=== PATIENT | male | born 1955 | race Caucasian/White ===

== ENCOUNTER 2021-01-08 11:25 | Observation (INO) | payer BC, SELFPAY ==
[2020-11-30 15:11] VITALS: BMI 42.5
--- NOTE | 2021-01-07 23:40 | HP.PCM_ITS ---
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 Over the last several months it has increased in size and intermittently bleeds. He has obstructive sleep apnea and he wears a nasal mask at night. Sometimes it will irritate his rhinophyma that can lead to bleeding as well. Patient has diabetes mellitus, and his last HgbA1c was 7.4 on 10/25/20. He presents today for further evaluation and treatment. PAST MEDICAL HISTORY Diabetes Hearing problem High blood pressure History of broken leg Neuropathy Obstructive sleep apnea Rhinophyma ALLERGIES No Known Allergies MEDICATIONS bupropion HCl hydrochlorothiazide insulin glargine 100 unit/mL insulin lispro 100 unit/mL lisinopril metformin metronidazole 1 % topical cream simvastatin FAMILY HISTORY Father - Cancer Mother - Diabetes, Hypertension, CVA (cerebral vascular accident) Grandmother - Melanoma Family history of skin cancer SOCIAL HISTORY Smoking Status: Former smoker alcohol intake: current substance use type: does not use REVIEW OF SYSTEMS General - Denies fever, fatigue, and weight loss. Eyes - Denies cataracts and glaucoma. ENT - Denies nasal congestion and sore throat. Endocrine - Denies excessive thirst and urination. Skin - Denies skin cancer. Has large area of rhinophyma. Has family history of skin cancer. Musculoskeletal - Denies joint pain, joint stiffness, weakness of muscles and joints, back pain, and arthritis. Neuro - Denies headaches. Cardiovascular - Denies chest pain, fatigue, and shortness of breath with exertion. Psych - Denies anxiety and depression. Respiratory - Denies chronic cough and shortness of breath. Has sleep apnea. He is a former smoker. Gastrointestinal - Denies nausea, vomiting, diarrhea, and constipation. Hematologic - Denies abnormal bruising and bleeding. Genitourinary - Denies hematuria and urinary frequency. PHYSICAL EXAMINATION General - Alert and oriented. HEENT - PERRL. EOMI. Throat is clear. On his nasal dorsum is a large area of rhinophyma. Measures 6 x 5 cm. It extends to the nasal tip and laterally onto the lateral nasal sidewall. The columella and inferior nostrils are spared. No evidence of infection. No other suspicious lesions noted. Neck - Supple and non-tender. No cervical adenopathy. No suspicious lesions noted. Lungs- Clear to auscultation. Heart - Regular rate and rhythm. Abdomen - Soft and non distended. Extremities - FROM. No axillary adenopathy. Radial pulses are palpable. No suspicious lesions noted. Neuro - CN II-XII grossly intact. Psych - Normal mood and affect. ASSESSMENT 1. Nasal rhinophyma. 2. Family history of skin cancer. 3. Diabetes mellitus. 4. Former smoker. PLAN Patient has longstanding rhinophyma. It has started to bleed intermittently. There is risk of infection, ulceration, and bleeding with untreated rhinophyma. Also the enlarged glands can obscure a potential skin cancer on the nose. Recommend excision and surgical planing of skin of nose for his rhinophyma. To help with hemostasis, CO2 laser can be used as well. The goal is to remove as much of the enlarged glands to allow adequate re- epithelialization. If the excision and surgical planing goes too deep, then healing will be with scar tissue. Tissue that is removed will be sent to Pathology for analysis to rule out carcinoma and to Microbiology for culture. A positive culture will necessitate antibiotic therapy. The wound will be left open and local wound care started to aid in re- epithelialization. Will start with Xeroform gauze and antibiotic ointment daily. Once re-epithelialization starts, can change to Aquaphor daily. If suboptimal healing occurs with a scar contracture that leads to a deformity, then excision of scar tissue can be done with skin grafting. Surgery will be done under general anesthesia with a surgical observation overnight stay in the hospital. Patient's HgbA1c was 7.4 on 10/25/20. For elective surgeries, the HgbA1c needs to be less than 8. Patient was informed of the risks and complications of the procedure including alternatives to surgery. These were discussed with the patient personally. Patient voices understanding and wishes to proceed. Some of the risks and complications were included in a form from the [place] [employer]. We discussed the current risks associated with COVID-19. While it is understood that there is a community spread of COVID-19, the risk of susy COVID-19 while at [facility] ([facility]) is very low; however, the risk cannot be completely mitigated because of the community spread of the disease. We discu ssed in detail the risk of exposure to and/or potential harm posed by the COVID- 19 virus with having a surgery/procedure at this time versus the risk of delaying the surgery/procedure. It is not possible to know either the risk of delaying the surgery or procedure or chance of getting an infection with perfect accuracy, but a joint decision was made to proceed at this time with the scheduled surgery/procedure as indicated on the consent form. Patient was notified that we will need to comply with any screening or testing WC wishes to perform or that surgery may be delayed for any positive results. Procedure Criteria Procedure Type:?Elective COVID Risk Discussion: The surgeon/proceduralist and patient have discussed in detail the risk of exposure to and/or potential harm posed by the COVID-19 virus with having a surgery/procedure at this time versus the risk of delaying the surgery/procedure.? It is not possible to know either the risk of delaying the surgery or procedure or chance of getting an infection with perfect accuracy, but a joint decision was made between the patient and the surgeon/proceduralist to proceed at this time with the scheduled surgery/procedure as indicated on the consent form.
[2021-01-08] VITALS (12 sets, daily range): BP systolic 133–152; BP diastolic 69–83; PULSE 60–66; RESP 16–18; TEMP 36.1–36.8; O2SAT 95–100; BMI 41.2
[2021-01-08] MEDS: Lactated Ringers 1,000 ML 100 ML IV ×2 (07:27→11:26)
[2021-01-08] MEDS: Mupirocin Ointment 22gm Tube 1 APPLIC (08:21)
--- NOTE | 2021-01-08 08:30 | NASAL_PTH ---
PATIENT: JAVED MARI LOC: MS3 U#:[id number] AGE/SX: 65/M ROOM: NE314 RE01/08/[address]: Dr. Constantino Parsons DO : 1955 BED: 1 DIS: 01/09/2021 SPEC #: [id number] RECD: 01/08/21 10:18 STATUS: EILEEN ROSEANNE #: [id number] BASSAM: 01/08/21 08:[address]: Luis Newton DEPT: SURGICAL PATHOLOGY RECD BY: Michael Holliday ENTERED: 01/08/21 11:09 SP TYPE: NASAL SPEC OTHR DR: Dr. 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 Diffuse sebaceous hyperplasia. Multiple follicular cysts. Acute and chronic inflammation and foreign body giant cell reaction. GRETCHEN:noreen 01/10/2021 COMMENT This case was reviewed and diagnosis discussed with Dr. Joe on 03/19/21. Case has been reviewed in consultation with Dr. Dawson who concurs with the above diagnosis. IDC:AM MICROSCOPIC DESCRIPTION Slides are reviewed. GROSS DESCRIPTION Received in fixative is one container labeled with the patient's name and designated tissue rhinophyma. The specimen consists of multiple pieces of parker-white skin that in aggregate measure 6 x 6 x 1.5 cm. No well-defined mass lesion is identified. Fruit Farmworker sections are submitted in three cassettes. / GRETCHEN:noreen 01/08/21 The rest of the specimen is submitted in eight more cassettes, 4-11. / GRETCHEN:noreen 01/09/21 TC:0 CPT: 21227
[2021-01-08 08:51] LABS: Bedside Glucose 158 mg/dL (70-110)
[2021-01-08] MEDS: Lidocaine 1% /Epi 1:100 (20ml) 20 ML Vial (09:05)
--- NOTE | 2021-01-08 10:13 | PCM.OPRPT ---
Problems Associated Problem List Diagnoses (1) Rhinophyma: (2) Family history of skin cancer: (3) Diabetes: (4) Former smoker: Report of Operation Date of Procedure: 01/08/21 Pre-Operative Diagnosis: 1. Nasal rhinophyma. 2. Family history of skin cancer. 3. Diabetes mellitus. 4. Former smoker. Post-Operative Diagnosis: Same. Surgery/Procedure Performed:: Excision and surgical planing skin of nose for rhinophyma and with CO2 laser ablation. 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 Over the last several months it has increased in size and intermittently bleeds. He has obstructive sleep apnea and he wears a nasal mask at night. Sometimes it will irritate his rhinophyma that can lead to bleeding as well. Patient has diabetes mellitus, and his last HgbA1c was 7.4 on 10/25/20. Patient was informed of the risks and complications of the procedure including alternatives to surgery. These were discussed with the patient personally. Patient voices understanding and wishes to proceed. Some of the risks and complications were included in a form from the [place] [employer]. I used Coherent Ultrapulse CO2 laser Model #5000C. Power - 60 Campos. Energy - 300 MJoules. Rate - Hertz (pulses/second). CGP - Pattern 3, Size 5. Density - 5. One second interval repeat delay. Size of nasal defect - 9 x 5 cm. Surgeon: Luis Newton emu farm worker: None Type of Anesthesia: General Specimen's removed: Nasal rhinophyma tissue to Pathology and Microbiology. Drains: None. Estimated Blood Loss (mL): 50. Description of Procedure: Patient was taken to OR in supine position and was placed under general anesthesia. The face was prepped and draped in the usual fashion. SCD's were placed for DVT prophylaxis. Perioperative antibiotics were given intravenously. Using xylocaine with epinephrine, the nasal rhinophyma was infiltrated. Because of the anticipation of a lot of bleeding, I waited 10 minutes to give the Epinephrine a chance to work. Under loupe magnification, I proceeded with excision and surgical planing of the skin of nose for rhinophyma. I needed several tangential passes because of the thickness and size of the enlarged glands. There were a lot of chronically infected sebaceous cysts with some isolated pus seen. The endpoint was not seeing any more gland and seeing subcutaneous tissue. It involved the entire nose except for the alar rims and the columella. By waiting extra minutes at the beginning of the procedure, it gave us better vasoconstriction. The bleeding was manageable. The estimated blood loss for the surgery was 50 ml. I anticipated 250-350 ml. There were several bleeding points that were actively bleeding and electrocautery was used for hemostasis. This was done in a tangential fashion to minimize vertical cautery damage that may expose some nasal cartilage. Tissue that was excised and surgically planed was sent to Pathology for analysis to rule out carcinoma and to Microbiology for culture. A positive culture will necessitate antibiotic therapy. At this point I wanted to proceed with the CO2 laser for ablation of some loose subcutaneous tissue to help smooth out the wound as the surgical planing can lead to some unevenness of the subcutaneous tissue. It is also used for ablation for any residual oozing in the nasal wound. I used the [employer] Ultrapulse CO2 laser. The settings I used were 60 Campos for power, 300 MJoules for energy, 200 Hertz for rate, Pattern 3 and Size 5 for CGP, Density of 5. I completed one full pass. For any additional areas of bleeding or unevenness, a second pass was done to these scattered areas. Good hemostasis was seen after the use of the laser. Much smoother contour of the subcutaneous tissue was noted. No exposed cartilage was seen. The size of the nasal defect was 9 x 5 cm. I then placed Xeroform gauze on the nasal wound followed by Bactroban ointment, and a 4x4 gauze dressing. Patient tolerated the procedure well and was sent to PACU in satisfactory condition. Patient will be sent upstairs for continued postop care. Anticipate discharge tomorrow if no bleeding is seen in the nasal wound. Will instruct the family on the care of the nasal wound. Grafts/Implants Used: None. Complications None. Addendum Addendum: Surgery Charges CPT - 31472 ICD-10 - L71.1, Z80.8, E11.9, Z87.891
[2021-01-08 10:36] LABS: Bedside Glucose 144 mg/dL (70-110)
[2021-01-08] MEDS: oxyCODONE 5 MG Tablet 10 MG PO (12:43)
--- NOTE | 2021-01-08 12:57 | PCM.PN.HOSP ---
Subjective Subjective Mr. Browne is a 65-year-old male with a past medical history of hypertension, DM-2, hyperlipidemia, diabetic neuropathy, and obstructive sleep apnea with remote tobacco abuse who was admitted to [facility] on 01/08/2021 by plastic surgery (Dr. Newton) for an excisional and surgery planing of nasal rhinophyma with CO2 laser ablation. His preoperative A1c on 10/25/2020 was 7.4. Evidently has had rhinophyma for years but unfortunately the size has increased and he has had intermittent bleeding. He wears a nasal mask for sleep apnea at night. He is now immediately postoperative admitted to the medical surgical floor. We have been consulted for medical management of his chronic medical issues. Patient reports that he has bought a fullface mask for his CPAP so he can wear his machine at night with his surgery. He is currently denying any pain. A diet has been started and he is tolerating this well. He denies any nausea. Objective Data Objective Data Vital Signs: Vital Signs Temp Pulse Resp BP Pulse Ox 97.6 F L 60 16 145/82 H 96 01/08/21 12:03 01/08/21 12:03 01/08/21 12:03 01/08/21 12:03 01/08/21 12:03 Oxygen Flow Rate (L/min) 6 Oxygen Delivery Method Room Air Weight: 134.2 kg Body Mass Index (BMI) 41.2 Intake & Output: Intake and Output for Last 24 Hours 01/06/21 01/07/21 01/08/21 23:59 23:59 23:59 Intake Total 1079.33 / 1079.33 Balance 1079.33 / 1079.33 Lab / Micro Data Labs: Laboratory Results - last 24 hr 01/08/21 07:35: POC Glucose 158 H 01/08/21 10:32: POC Glucose 144 H Physical Exam Const alert and oriented x3 Constitutional Narrative: Very pleasant, morbidly obese, upper middle-aged white male sitting up in bed watching television, appears comfortable and nontoxic Exam Limitations: no limitations HEENT head/scalp atraumatic, moist oral mucous membranes and oropharynx normal HEENT Narrative: Mallampati 3-4, no thrush, dentition fair Head and Scalp: normocephalic Mouth: oral and palatal mucosa normal Eyes PERRL and EOMs intact bilaterally Neck no lymphadenopathy, supple and no JVD Neck Narrative: Trachea midline, no thyroid enlargement noted Resp normal respiratory effort, no retractions, no use of accessory muscles and clear to auscultation bilaterally Auscultation: Negative for crackles, rales, rhonchi or wheezes Cardio regular rate, regular rhythm, S1 normal heart sound, S2 normal heart sound, no murmurs, no rub, no gallops, no clicks and no JVD GI normal to inspection, nondistended, normoactive bowel sounds, soft to palpation, non-tender and non-distended Extremity no clubbing, cyanosis or edema Extremity Narrative: SCDs in place Peripheral Pulses: Yes pulses 2+ throughout Skin no rashes or lesions noted, skin turgor normal, no jaundice, no petechiae and no mottling Skin Narrative: Bandage over postoperative nose with some blood staining but not saturated Neuro oriented x3, CN's II-XII intact bilaterally, moves all extremities and no focal motor deficits Sensorium / Orientation: awake and alert Speech: speech normal Psych affect normal Psych Narrative: Very pleasant Assessment & Plan Assessment/Plan (1) Rhinophyma: PLAN: Rhinophyma status post excision and surgical planing skin of nose for rhinophyma and with CO2 laser ablation -Management per Dr. Newton from plastic surgery -Home aspirin is on hold -Pain management per primary -Bowel regimen ordered -Continue IV fluids at 60 cc/h until p.o. intake has improved Hypertension -Continue amlodipine 5 mg daily -Continue hydrochlorothiazide 25 mg daily -Continue losartan 100 mg daily Hyperlipidemia -Continue statin DM-2 uncontrolled -Preoperative hemoglobin A1c in October 2020 was 7.4 -Continue home Lantus 80 units twice daily -Continue home metformin -Add sliding scale 3 times daily and before meals -Accu-Cheks History of tobacco abuse -No diagnosis of COPD -As needed albuterol added [place] -Patient typically wears nasal pillows but had the foresight enough to get a full facemask to not place pressure on his nose with his recent surgery -Please bring CPAP machine and full facemask Morbid obesity -Recommend weight loss -BMI 41.3 -Complicates treatment, prognosis, and outcomes Vitamin D deficiency -Continue home cholecalciferol Depression -Continue Wellbutrin DVT prophylaxis -Enoxaparin 40 mg SQ twice daily -SCDs CODE STATUS -Full code Charges/Coding Visit Charges Inpatient E&M: 96161 Subs Hosp L2
[2021-01-08] MEDS: Insulin Lispro 100 UNIT/ML INSULN.PEN SC (16:13)
[2021-01-08] MEDS: metFORMIN HCl 1,000 MG Tablet 1000 MG PO (16:15)
[2021-01-08 16:16] LABS: Bedside Glucose 264 mg/dL (70-110)
[2021-01-08] MEDS: Docusate Sodium 100 MG Capsule PO (22:05)
[2021-01-08] MEDS: Lactated Ringers 1,000 ML 60 ML IV (22:05)
[2021-01-08] MEDS: Enoxaparin 40 MG/0.4 ML Syringe SC (22:05)
[2021-01-08 22:16] LABS: Bedside Glucose 262 mg/dL (70-110)
--- NOTE | 2021-01-08 22:45 | PCS.PANDOC ---
PANDEMIC DOCUMENTATION INITIATED: Date: 12/25/2020 Time: 190
[2021-01-09 04:39] VITALS: BP 152/84; PULSE 67; RESP 18; TEMP 36.9; O2SAT 98
[2021-01-09 05:29] LABS: Hematocrit 41.4 % (40-54); Hemoglobin 13.7 g/dL (13.0-16.5); Mean Corp Hgb Conc 33.1 g/dL (32-36); Mean Corpuscular Hgb 28.9 pg (27.0-32.0); Mean Corpuscular Volume 87.3 fL (80-94); Mean Platelet Vol. 11.6 fl (6.2-12.0); Platelet Count 206 K/mm3 (150-450); RBC Distribution Width CV 12.3 % (11.6-14.6); RBC Distribution Width SD 39.8 fl (35.1-43.9); Red Blood Count 4.74 M/mm3 (4.6-6.2); White Blood Count 9.8 K/mm3 (4.4-11.0)
[2021-01-09 06:08] LABS: Anion Gap 5 (5-15); BUN 16 mg/dL (7-18); BUN/Creat Ratio 17.8 RATIO (10-20); Calcium,Total 8.3 mg/dL (8.5-10.1); Chloride 106 mmol/L (98-107); EST Glomerular Filtration Rate 91 mL/min (>60); Est Glom Filt Rate - Afr Amer 110 mL/min (>60); Estimated Creatinine Clearance 88.31 ml/min; Glucose 164 mg/dL (74-106); Potassium 3.6 mmol/L (3.5-5.1); Prealbumin 24.3 mg/dL (20.0-40.0); Sodium Level 137 mmol/L (136-145)
[2021-01-09 06:35] LABS: Bedside Glucose 149 mg/dL (70-110)
[2021-01-09 07:42] VITALS: PULSE 80
[2021-01-09] MEDS: Losartan Potassium 100 MG Tablet PO (07:53)
[2021-01-09] MEDS: hydroCHLOROthiazide 25 MG Tablet PO (07:53)
[2021-01-09] MEDS: amLODIPine 5 MG Tablet PO (07:53)
[2021-01-09] MEDS: buPROPion (XL) 300 MG TABLET.XL PO (07:53)
[2021-01-09] MEDS: metFORMIN HCl 1,000 MG Tablet 1000 MG PO (07:53)
[2021-01-09] MEDS: Docusate Sodium 100 MG Capsule PO (07:54)
--- NOTE | 2021-01-09 09:53 | PCM.PN.HOSP ---
Subjective Subjective Feels well tolerating full face mask. No change to nasal dressing since surgery. Objective Data Objective Data Vital Signs: Vital Signs Temp Pulse Resp BP Pulse Ox 36.9 C 80 18 152/84 H 98 01/09/21 04:39 01/09/21 07:42 01/09/21 04:39 01/09/21 04:39 01/09/21 04:39 Oxygen Flow Rate (L/min) 6 Oxygen Delivery Method Room Air Weight: 134.2 kg Body Mass Index (BMI) 41.2 Intake & Output: Intake and Output for Last 24 Hours 01/07/21 01/08/21 01/09/21 23:59 23:59 23:59 Intake Total 2442.33 / 2442.33 304 / 304 Balance 2442.33 / 2442.33 304 / 304 Lab / Micro Data Result Diagrams: 01/09/21 05:12 01/09/21 05:12 Labs: Laboratory Results - last 24 hr 01/08/21 10:32: POC Glucose 144 H 01/08/21 16:08: POC Glucose 264 H 01/08/21 22:03: POC Glucose 262 H 01/09/21 04:39: POC Glucose 149 H 01/09/21 05:12: WBC 9.8, RBC 4.74, Hgb 13.7, Hct 41.4, MCV 87.3, MCH 28.9, MCHC 33.1, RDW Std Deviation 39.8, RDW Coeff of Eliezer 12.3, Plt Count 206, MPV 11.6 01/09/21 05:12: Sodium 137, Potassium 3.6, Chloride 106, Carbon Dioxide 26.0, Anion Gap 5, BUN 16, Creatinine 0.90, Estim Creat Clear Calc 88.31, Est GFR (MDRD) Af Amer 110, Est GFR (MDRD) Non-Af 91, BUN/Creatinine Ratio 17.8, Glucose 164 H, Calcium 8.3 L, Prealbumin 24.3 Physical Exam Narrative on CPAP. no respiratory distress. HEENT HEENT Narrative: nasal dressing with some sanguinous discharge. Resp normal respiratory effort, no retractions, no use of accessory muscles and clear to auscultation bilaterally Cardio regular rate, regular rhythm, S1 normal heart sound and S2 normal heart sound GI normal to inspection, nondistended, normoactive bowel sounds, soft to palpation, non-tender and non-distended Assessment & Plan Assessment/Plan (1) Rhinophyma: PLAN: 1. rhinophyma s/p excision and surgical planing skin or nose with laser ablation on 01/08 mgmt per PRS 2. Hypertension -Continue amlodipine 5 mg daily -Continue hydrochlorothiazide 25 mg daily -Continue losartan 100 mg daily 3. Hyperlipidemia -Continue statin 4. DM2 fair control -Preoperative hemoglobin A1c in October 2020 was 7.4 -Continue home Lantus 80 units twice daily -Continue home metformin -Add sliding scale 3 times daily and before meals -Accu-Cheks 5. History of tobacco abuse -No diagnosis of COPD -As needed albuterol added 6. [place] -Patient typically wears nasal pillows but had the foresight enough to get a full facemask to not place pressure on his nose with his recent surgery -Please bring CPAP machine and full facemask 7. Morbid obesity -Recommend weight loss -BMI 41.3 -Complicates treatment, prognosis, and outcomes 8. Vitamin D deficiency -Continue home cholecalciferol 9. Depression -Continue Wellbutrin 10. DVT prophylaxis -Enoxaparin 40 mg SQ twice daily -SCDs Medically stable for discharge. Charges/Coding Visit Charges Inpatient E&M: 39085 Subs Hosp L2
[2021-01-09] MEDS: Enoxaparin 40 MG/0.4 ML Syringe SC (10:08)
[2021-01-09 10:12] VITALS: BP 160/78; PULSE 75; RESP 18; TEMP 36.9; O2SAT 98
[2021-01-09] MEDS: Insulin Lispro 100 UNIT/ML INSULN.PEN SC (11:51)
[2021-01-09 12:01] LABS: Bedside Glucose 204 mg/dL (70-110)
[2021-01-09 12:01] LABS: Bedside Glucose 257 mg/dL (70-110)
--- NOTE | 2021-01-09 12:37 | PCM.PN.SRG ---
Subjective Subjective Postop #1 Patient sitting up in chair. He states his pain is well controlled. Objective Data Objective Data Vital Signs: Vital Signs Temp Pulse Resp BP Pulse Ox 98.5 F 75 18 160/78 H 98 01/09/21 10:12 01/09/21 10:12 01/09/21 10:12 01/09/21 10:12 01/09/21 10:12 Oxygen Flow Rate (L/min) 6 Oxygen Delivery Method Room Air Weight: 295 lb 13.765 oz Body Mass Index (BMI) 41.2 Intake & Output: Intake and Output for Last 24 Hours 01/07/21 01/08/21 01/09/21 23:59 23:59 23:59 Intake Total 2442.33 / 2442.33 304 / 304 Balance 2442.33 / 2442.33 304 / 304 Lab / Micro Data Result Diagrams: 01/09/21 05:12 01/09/21 05:12 Labs: Laboratory Results - last 24 hr 01/08/21 16:08: POC Glucose 264 H 01/08/21 22:03: POC Glucose 262 H 01/09/21 04:39: POC Glucose 149 H 01/09/21 05:12: WBC 9.8, RBC 4.74, Hgb 13.7, Hct 41.4, MCV 87.3, MCH 28.9, MCHC 33.1, RDW Std Deviation 39.8, RDW Coeff of Eliezer 12.3, Plt Count 206, MPV 11.6 01/09/21 05:12: Sodium 137, Potassium 3.6, Chloride 106, Carbon Dioxide 26.0, Anion Gap 5, BUN 16, Creatinine 0.90, Estim Creat Clear Calc 88.31, Est GFR (MDRD) Af Amer 110, Est GFR (MDRD) Non-Af 91, BUN/Creatinine Ratio 17.8, Glucose 164 H, Calcium 8.3 L, Prealbumin 24.3 01/09/21 10:07: POC Glucose 257 H 01/09/21 11:48: POC Glucose 204 H Micro: Microbiology 01/08/21 10:00 Tissue - Nose Wound Culture - Preliminary Streptococcus group B Physical Exam Const oriented x3 and no apparent distress Eyes PERRL Resp normal respiratory effort Cardio regular rate GI soft to palpation and non-tender Extremity normal to inspection and full ROM Skin Wound Narrative: Operative dressing removed. Xeroform in place over nose. No active bleeding at this time. Minimal swelling present. Neuro oriented x3 and CN's II-XII intact bilaterally Psych mental status grossly normal and thought process normal Assessment & Plan Assessment/Plan (1) Rhinophyma: (2) Other acute postprocedural pain: (3) Diabetes: (4) Former smoker: (5) Family history of skin cancer: PLAN: Pain is well controlled. Operative dressing removed. No active bleeding at this time. Will keep the Xeroform gauze in place. Wash nose with soap and water daily. Place antibiotic ointment over the xeroform and cover with gauze daily. Preliminary operative cultures positive for Streptococcus group B. He will be sent home on Clindamycin. Instructed to keep head elevated, even at night to sleep on 1-2 extra pillows. Prealbumin 24.3. Encouraged to increase protein intake to help with wound healing. Encouraged to keep blood sugars under control to help with wound healing. He is able to be discharged today. Follow up in office on 01/11. Charges/Coding Procedures Integumentary 111xxx-113xx: 92540 Global Visit
--- NOTE | 2021-01-09 12:38 | PCM.DC ---
Discharge Instructions Diet Discharge Diet: Carb Control Diet (Increase protein intake) Activity Discharge Activity: May Shower Lifting Restrictions: 20 lb weight lifting restrictions Additional Activity Instructions:: Keep head elevated, including when sleeping. Dressing / Incision Call your doctor if your incision/area has: Continuous Slow Oozing, Sudden Increased Bleeding, Increased Pain/ Swelling, Increased Redness and Foul Smelling Discharge Call your doctor if you observe: Fever of 101 or Higher, Coldness, Increased Pain, Shortness of breath, Chest pain, Calf discomfort and Uncontrolled pain Suture Line Care: Avoid Pinching/Bending Change Dressing in: 1 day Cleanse incision/area with: Soap & Water Additional Dressing/Incision Instructions:: Keep Xeroform gauze in place. Wash nose (over xeroform gauze-yellow gauze) and place antibiotic ointment onto the xeroform gauze daily. May cover with dry gauze Follow Up Care Please Follow Up With: Dr Newton When: 01/11/21- Call for an appointment [phone] Test Results: Test results from this visit will be discussed in further detail at your follow-up appointment, if applicable. Discharge Plan Admission Admit Date/Time: 01/08/21 11:25 Attending Provider: Constantino Parsons Primary Care Provider: Jason Bajwa Consulting Providers: Ana Levine Discharge Orders/Prescriptions Prescriptions: New oxycodone-acetaminophen [Percocet] 5-325 mg tablet 1 tab PO Q4H PRN (Reason: pain (scale score 7-10)) 7 Days Qty: 40 RF: 0 clindamycin HCl 300 mg capsule 300 mg PO TID 5 Days Qty: 15 RF: 0 ondansetron 4 mg tablet,disintegrating 4 mg PO Q8H PRN (Reason: nausea and vomiting) 4 Days Qty: 10 RF: 0 Continued metronidazole 1 % cream 1 applic TOPICAL DAILY RF: 0 hydrochlorothiazide 25 mg tablet 25 mg PO DAILY RF: 0 metformin 1,000 mg tablet 1,000 mg PO BID RF: 0 Lantus U-100 Insulin 100 unit/mL solution 80 unit SC BID RF: 0 insulin lispro [Humalog U-100 Insulin] 100 unit/mL solution 6 unit SC TID RF: 0 simvastatin 10 mg tablet 10 mg PO .every other day RF: 0 bupropion HCl 300 mg tablet extended release 24 hr 300 mg PO QAM RF: 0 amlodipine 5 mg Tablet 5 mg PO DAILY RF: 0 losartan 100 mg Tablet 100 mg PO DAILY RF: 0 multivitamin Capsule 1 cap PO DAILY RF: 0 cholecalciferol (vitamin D3) [Vitamin D3] 125 mcg (5,000 unit) Tablet 125 mcg PO DAILY RF: 0 hlnfr-[id number]-edn-epa-fish oil 350-400 mg Capsule 1 cap PO DAILY RF: 0 aspirin 81 mg Tablet,Delayed Release (Dr/Ec) 81 mg PO DAILY RF: 0 Referrals / Follow Up: Jason Bajwa MD [Primary Care Provider] - Disposition Disposition (needs filled in before D/C Order can be placed): Home, Self Care
[2021-01-09 15:23] VITALS: BP 153/76; PULSE 75; RESP 18; TEMP 37; O2SAT 99
--- NOTE | 2021-01-09 16:04 | PHA.DC.MC ---
Pharmacy Service has performed discharge medication reconciliation and counseling for this patient. 1. CLINDAMYCIN 300MG PO TID X 5 DAYS 2. ONDANSETRON ODT 4MG PO Q8H PRN N/V 3. OXYCODONE/ACETAMINOPHEN 5/325MG 1T PO Q4H PRN PAIN 7-10 The patient's discharge medication list was reviewed for discrepancies and discrepancies were resolved. Home Medications bupropion HCl 300 mg 24 hr tablet, extended release 300 mg PO QAM 07/29/19 hydrochlorothiazide 25 mg tablet 25 mg PO DAILY 07/29/19 insulin glargine 100 unit/mL subcutaneous solution 80 unit SC BID ml 07/29/19 insulin lispro 100 unit/mL subcutaneous solution 6 unit SC TID ml 07/29/19 metformin 1,000 mg tablet 1,000 mg PO BID 07/29/19 metronidazole 1 % topical cream 1 applic TOPICAL DAILY 07/29/19 simvastatin 10 mg tablet 10 mg PO .every other day tab 07/29/19 amlodipine 5 mg PO DAILY 01/01/21 aspirin 81 mg PO DAILY 01/01/21 cholecalciferol (vitamin D3) [Vitamin D3] 125 mcg PO DAILY 01/01/21 losartan 100 mg PO DAILY 01/01/21 multivitamin 1 cap PO DAILY 01/01/21 msywk-[id number]-epa-fish oil 1 cap PO DAILY 01/01/21 clindamycin HCl 300 mg PO TID 5 Days #15 cap 01/09/21 ondansetron 4 mg PO Q8H PRN 4 Days #10 tab 01/09/21 oxycodone-acetaminophen [Percocet] 1 tab PO Q4H PRN 7 Days #40 tab 01/09/21 The patient was counseled on the following discharge medications and changes in medications for homegoing were reviewed. The Reason for Use, instructions for use, and potential side effects were reviewed for all new medications. The patient's questions regarding all of their medications were answered. The patient was able to verbally demonstrate an understanding of their discharge medications.
== END 2021-01-09 16:09 | disposition home or self-care (01) ==
LOC: SDC 13:53 → MS3 13:53
PROVIDERS: Admitting Provider Surgery; PCP Family Medicine; Referring Provider Surgery
PROC: (CPT 30120; principal; 2021-01-08 08:15)
DX: L71.1 Rhinophyma (principal); G47.33 Obstructive sleep apnea (adult) (pediatric); E11.40 Type 2 diabetes mellitus with diabetic neuropathy, unspecified; G25.81 Restless legs syndrome; E78.5 Hyperlipidemia, unspecified; I10 Essential (primary) hypertension; Z79.899 Other long term (current) drug therapy; Z79.4 Long term (current) use of insulin; Z79.82 Long term (current) use of aspirin; Z87.891 Personal history of nicotine dependence; Z68.41 Body mass index [BMI] 40.0-44.9, adult; E66.01 Morbid (severe) obesity due to excess calories; E55.9 Vitamin D deficiency, unspecified; F32.9 Major depressive disorder, single episode, unspecified
CPT/HCPCS: 30120; 80048; 82962; 84134; 85027; 87070; 87075; 87077; 87102; 87186; 87205; 87206; 88305; 96360; 96361; 96372; 99218; J7120; G0378; J2405

== ENCOUNTER → 2021-01-24 10:45 | Outpatient (CLI) | payer BC, SELFPAY ==
[2021-01-24 12:33] LABS: Vitamin B12 870 pg/mL (211-911)
[2021-01-24 13:24] LABS: Anion Gap 7 (5-15); BUN 10 mg/dL (7-18); BUN/Creat Ratio 11.4 RATIO (10-20); Calcium,Total 8.8 mg/dL (8.5-10.1); Chloride 104 mmol/L (98-107); Creatinine, Serum 0.87 mg/dL (0.70-1.30); EST Glomerular Filtration Rate 93 mL/min (>60); Est Glom Filt Rate - Afr Amer 113 mL/min (>60); Glucose 108 mg/dL (74-106); Magnesium 2.3 mg/dL (1.6-2.6); Potassium 3.4 mmol/L (3.5-5.1); Sodium Level 140 mmol/L (136-145)
== END ==
PROVIDERS: PCP Family Medicine; Referring Provider Nurse Practitioner Family; Visit Provider Nurse Practitioner Family
DX: R25.2 Cramp and spasm (principal)
CPT/HCPCS: 36415; 80048; 82607; 82746; 83735

== ENCOUNTER → 2021-03-16 16:05 | Outpatient (CLI) | payer BC, SELFPAY ==
[2021-03-16 18:25] LABS: AST(SGOT) 22 U/L (15-37); Alanine Aminotransfer ALT/SGPT 42 U/L (16-61); Albumin, Serum 3.5 g/dL (3.2-5.0); Alkaline Phosphatase 68 U/L (45-117); Anion Gap 6 (5-15); BUN 14 mg/dL (7-18); BUN/Creat Ratio 11.4 RATIO (10-20); Chloride 105 mmol/L (98-107); Creatinine, Serum 1.23 mg/dL (0.70-1.30); EST Glomerular Filtration Rate 63 mL/min (>60); Est Glom Filt Rate - Afr Amer 76 mL/min (>60); Globulin 3.6 g/dL (2.2-4.2); Glucose 131 mg/dL (74-106); Potassium 3.9 mmol/L (3.5-5.1); Protein, Total 7.1 g/dL (6.4-8.2); Sodium Level 141 mmol/L (136-145)
== END ==
PROVIDERS: PCP Family Medicine; Referring Provider Nurse Practitioner Family; Visit Provider Nurse Practitioner Family
DX: C44.311 Basal cell carcinoma of skin of nose (principal); L71.1 Rhinophyma; R25.2 Cramp and spasm; S01.20XA Unspecified open wound of nose, initial encounter; Z98.890 Other specified postprocedural states
CPT/HCPCS: 36415; 80053

== ENCOUNTER → 2021-11-08 | Outpatient (CLI) | payer MEDICARE, BC, SELFPAY | END | disposition home or self-care (01) | LOC: LABSPEC 10:38 | PROVIDERS: PCP Family Medicine; Referring Provider Dermatology; Visit Provider Dermatology | DX: Z08 Encounter for follow-up examination after completed treatment for malignant neoplasm (principal); L40.0 Psoriasis vulgaris; L30.8 Other specified dermatitis; L40.3 Pustulosis palmaris et plantaris; L02.213 Cutaneous abscess of chest wall; D22.5 Melanocytic nevi of trunk; L82.1 Other seborrheic keratosis; L29.8 Other pruritus; Z85.828 Personal history of other malignant neoplasm of skin; Z71.89 Other specified counseling; Z79.899 Other long term (current) drug therapy | CPT/HCPCS: 87070; 87205 ==

== ENCOUNTER → 2021-11-09 | Outpatient (CLI) | payer MEDICARE, BC, SELFPAY ==
[2021-11-09 16:17] LABS: AST(SGOT) 21 U/L (15-37); Alanine Aminotransfer ALT/SGPT 35 U/L (16-61); Albumin, Serum 3.7 g/dL (3.2-5.0); Alkaline Phosphatase 69 U/L (45-117); Bilirubin, Direct 0.23 mg/dL (0.00-0.30); Globulin 3.3 g/dL (2.2-4.2)
[2021-11-11 20:07] LABS: QNTFERON TB Mitogen Value > 10.00 IU/mL (.); QNTFERON TB Nil Value 0 IU/mL (.); QNTFERON TB1+ Ag Value 0 IU/mL (.); QNTFERON TB2+ Ag Value 0 IU/mL (.)
[2021-11-11 22:21] LABS: Hepatitis B Core Ab Total Negative (Negative); QNTIFERON TB Positive Criteria Negative (Negative)
[2021-11-12 08:37] LABS: Hepatitis B Surface Antibody Non-Reactive; Hepatitis B Surface Antigen Non-Reactive (Nonreactive)
[2021-11-14 15:29] LABS: Hepatitis C Antibody Non-Reactive (Nonreactive)
== END | disposition home or self-care (01) ==
LOC: MTLAB 14:05
PROVIDERS: PCP Family Medicine; Referring Provider Dermatology; Visit Provider Dermatology
DX: L40.0 Psoriasis vulgaris (principal); L30.8 Other specified dermatitis; L40.3 Pustulosis palmaris et plantaris; L40.8 Other psoriasis; L21.8 Other seborrheic dermatitis; L02.213 Cutaneous abscess of chest wall; D22.5 Melanocytic nevi of trunk; L82.1 Other seborrheic keratosis; Z08 Encounter for follow-up examination after completed treatment for malignant neoplasm; Z85.828 Personal history of other malignant neoplasm of skin; Z79.899 Other long term (current) drug therapy; Z71.89 Other specified counseling
CPT/HCPCS: 36415; 80076; 86480; 86704; 86706; 86803; 87340